=== PATIENT | female | born 1980 | race Caucasian/White ===

== ENCOUNTER → 2016-11-07 | Day surgery (SDC) | payer OTHER ==
[2016-11-02 15:18] VITALS: Ht 165.1 cm; Wt 118.2 kg
[~2016-11-07] VITALS: Ht 165.1 cm; Wt 118.2 kg
[~2016-11-07] MED LIST: ATROPINE SULFATE 0.1 MG/ML 5ML SYR IV PRN; CETI10TA84 PO; DEXAMETHASONE SOD INJ 4 MG/ML VIAL ONE; EpHEDrine SULFATE INJ 50 MG/ML AMP IV PRN; EpHEDrine SULFATE INJ 50 MG/ML AMP ONE; FENTANYL CITRATE INJ 50 MCG/1 ML 2 ML VIAL IV PRN; FENTANYL CITRATE INJ 50 MCG/1 ML 2 ML VIAL ONE; IBUP-1449 PO; LACTATED RINGER'S 1000ML 1,000 ML IV SCH; LIDOCAINE HCL 2% 2 ML VIAL (20MG/ML) ONE; MIDAZOLAM HCL 1 MG/ML 2ML VIAL ONE; NAPR-1168 PO; ONDANSETRON INJ 2 MG/ML 2 ML VIAL IV PRN; ONDANSETRON INJ 2 MG/ML 2 ML VIAL ONE; OXYC-57 PO; PHENYLEPHRINE HCL INJ 10 MG/ML VIAL ONE; PROPOFOL IV EMULSION 10 MG/ML 20 ML VIAL IV ONE; ROCURONIUM BROMIDE 10 MG/ML 5 ML VIAL ONE; SUCCINYLCHOLINE CHLORIDE 20 MG/ML 10 ML VIAL IV ONE; TUMS PO
[2016-11-07 10:12] VITALS: BP 100/70; PULSE 83; TEMP 36.9; O2SAT 96
== END | disposition home or self-care (01) ==
LOC: C.ACU 09:59 → MERGE 11:50
PROVIDERS: ATTEND Otolaryngology
DX: E04.1 Nontoxic single thyroid nodule (principal); Z53.09 Procedure and treatment not carried out because of other contraindication

== ENCOUNTER 2016-11-23 07:42 | Inpatient (IN) | payer OTHER ==
[2016-11-08 12:32] VITALS: BMI 43.0
[~2016-11-23] VITALS: Ht 165.1 cm; Wt 118.0 kg
[2016-11-23] VITALS (9 sets, daily range): BP systolic 103–158; BP diastolic 63–84; PULSE 72–94; TEMP 36.4–37; O2SAT 91–97; Ht 165.1 cm; Wt 118.0 kg
[~2016-11-23 07:42] MED LIST changes: -ATROPINE SULFATE 0.1 MG/ML 5ML SYR IV PRN; -DEXAMETHASONE SOD INJ 4 MG/ML VIAL ONE; -EpHEDrine SULFATE INJ 50 MG/ML AMP IV PRN; -EpHEDrine SULFATE INJ 50 MG/ML AMP ONE; -FENTANYL CITRATE INJ 50 MCG/1 ML 2 ML VIAL IV PRN; -FENTANYL CITRATE INJ 50 MCG/1 ML 2 ML VIAL ONE; -LIDOCAINE HCL 2% 2 ML VIAL (20MG/ML) ONE; -MIDAZOLAM HCL 1 MG/ML 2ML VIAL ONE; -ONDANSETRON INJ 2 MG/ML 2 ML VIAL IV PRN; -ONDANSETRON INJ 2 MG/ML 2 ML VIAL ONE; -OXYC-57 PO; -PHENYLEPHRINE HCL INJ 10 MG/ML VIAL ONE; -PROPOFOL IV EMULSION 10 MG/ML 20 ML VIAL IV ONE; -ROCURONIUM BROMIDE 10 MG/ML 5 ML VIAL ONE; -SUCCINYLCHOLINE CHLORIDE 20 MG/ML 10 ML VIAL IV ONE; -TUMS PO
[2016-11-23] MEDS ORDERED: ONDANSETRON INJ 2 MG/ML 2 ML VIAL ONE (07:58)
[2016-11-23] MEDS ORDERED: DEXAMETHASONE SOD INJ 4 MG/ML VIAL ONE (07:58)
[2016-11-23] MEDS ORDERED: PROPOFOL IV EMULSION 10 MG/ML 20 ML VIAL IV ONE ×2 (07:58→11:03)
[2016-11-23] MEDS ORDERED: LIDOCAINE HCL 2% 2 ML VIAL (20MG/ML) ONE ×2 (07:58→11:27)
[2016-11-23] MEDS ORDERED: MIDAZOLAM HCL 1 MG/ML 2ML VIAL ONE (07:59)
[2016-11-23] MEDS ORDERED: FENTANYL CITRATE INJ 50 MCG/1 ML 2 ML VIAL ONE (08:00)
[2016-11-23] MEDS ORDERED: LIDOCAINE/EPINEPHRINE 1% 20 ML VIAL ONE (08:37)
[2016-11-23] MEDS ORDERED: EpINEphrine INJ 1MG/ML AMP 1 MG/ML AMP ONE (08:38)
[2016-11-23 08:44] LABS: HEMATOCRIT 42.1 % (37-47); MEAN CELL VOLUME 82.7 fL (80-100); MEAN CORPUSCULAR HEMOGLOBIN 27.5 pg (25-34); MEAN CORPUSCULAR HGB CONC 33.3 g/dl (32-36); MEAN PLATELET VOLUME 10.1 fL (7.4-10.4); PLATELET COUNT 221 K/uL (130-400); RED BLOOD COUNT 5.09 M/uL (4.2-5.4); WHITE BLOOD COUNT 7.72 K/uL (4.8-10.8)
[2016-11-23 08:55] LABS: BUN/CREATININE RATIO 16.1 (10-20); CALCIUM 8.7 mg/dl (8.5-10.1); CREATININE 0.89 mg/dl (0.60-1.20); POTASSIUM 3.8 mmol/L (3.5-5.1)
--- NOTE | 2016-11-23 09:03 | History and Physical ---
History & Physical Date Nov 23, 2016. History of Present Illness The patient is a 36 year old female with complaints of left sided thyroid nodule , FNA AUS, suspicious on genetic testing. Additional History Hepatic Disease: No Endocrine Disorder: No Kidney Disease: No Hypertension: No Heart Disease: No Bleeding Tendencies: No Infectious Diseases: No Allergies Coded Allergies: No Known Allergies (Unverified , 11/23/16) Home Medications Scheduled PRN Cetirizine (Zyrtec), 10 MG PO prn PRN for allergies Ibuprofen Tab (Motrin), 400 MG PO UD PRN for Pain Naproxen Ds (Naprosyn Ds), 550 MG PO UD PRN for menstrual cramps/bleeding Physical Examination Skin: warm/dry, no rash Eyes: normal inspection, EOMI, sclerae normal ENT: normal ENT inspection, pharynx normal Head: normocephalic, atraumatic Neck: supple, no adenopathy, trachea midline Respiratory/Chest: lungs clear, normal breath sounds, no respiratory distress Cardiovascular: regular rate, rhythm, no edema, no murmur Diagnosis Left thyroid nodule Plan of Treatment proceed with left hemithyroidectomy scds
[2016-11-23] MEDS ORDERED: PROMETHAZINE HCL INJ 6.25 MG in SODIUM CHLORIDE 0.9% 50ML 50 ML IV PRN (09:15)
[2016-11-23] MEDS ORDERED: LABETALOL HCL IV 5 MG/ML 20ML IV PRN (09:15)
[2016-11-23] MEDS ORDERED: ATROPINE SULFATE 0.1 MG/ML 5ML SYR IV PRN (09:15)
[2016-11-23] MEDS ORDERED: ONDANSETRON INJ 2 MG/ML 2 ML VIAL IV PRN ×2 (09:15→09:30)
[2016-11-23] MEDS ORDERED: TUMS PO (09:23)
[2016-11-23] MEDS ORDERED: OXYC-57 PO (09:23)
--- NOTE | 2016-11-23 09:26 | Discharge Instructions ---
Discharge Instructions Date of Service Nov 23, 2016. Admission Reason for Admission: Thyroid Nodule Discharge Discharge Diagnosis / Problem: thyroid nodule Discharge Goals Goal(s): Diagnostic testing Activity Recommendations Activity Limitations: as noted below Lifting Limitations: until after follow-up appointment Exercise/Sports Limitations: until after follow-up appointment May Resume Sexual Activity: after follow-up appointment Shower/Bathe: keep incision dry Driving or Machine Use: no driving until after first follow up . Instructions / Follow-Up Instructions / Follow-Up No strenuous activity for 2 weeks Keep incision dry. To shower, place a washcloth over the incision and wrap neck in saran wrap Call for any numbness or tingling around lips or fingertips that does not resolve after 15 minutes of rest call for any spreading redness or swelling of the incision Do not place any ointment or any cream on the steri strip. Keep this dry. Current Hospital Diet Patient's current hospital diet: Discharge Diet Recommended Diet: Regular Diet Fluid Restriction: None Pending Studies Studies pending at discharge: no Medical Emergencies . Who to Call and When: Medical Emergencies: If at any time you feel your situation is an emergency, please call 911 immediately. . Non-Emergent Contact Non-Emergency issues call your: Specialist Contact Number: [phone] . . "Provider Documentation" section prepared by Jimmy Barrett. . VTE Core Measure Inpt VTE Proph given/why not?: Treatment not indicated [place] Drug Monitoring Program Search Results: patient reviewed within database, no issues identified
[2016-11-23] MEDS ORDERED: CETIRIZINE HCL 10 MG TAB PO PRN (09:30)
[2016-11-23] MEDS ORDERED: MoRPHine SULFATE 2 MG/ML CARP IV PRN (09:30)
[2016-11-23] MEDS ORDERED: SUCCINYLCHOLINE CHLORIDE 20 MG/ML 10 ML VIAL IV ONE (11:03)
[2016-11-23] MEDS ORDERED: ARTIFICIAL TEARS OP OINT 3.5 GM TUBE ONE (11:28)
--- NOTE | 2016-11-23 11:30 | [facility] Post Operative Brief Note ---
Immediate Operative Summary Operative Date Nov 23, 2016. Pre-Operative Diagnosis Left thyroid nodule Post-Operative Diagnosis Left thyroid nodule Procedure(s) Performed Left Hemithyroidectomy Surgeon Dr. Jimmy Barrett Hose Tester Surgeon(s) Jer Padilla PA-C Estimated Blood Loss 10 ML Findings left thyroid nodule Specimens a. Left Thyroid Lobe, portion of ithmus; stitch superior pole Drains none Anesthesia GETA Complication(s) None Disposition Recovery Room / PACU
--- NOTE | 2016-11-23 11:43 | [facility] Operative Report ---
Operative Report Date of Service Nov 23, 2016. Operative Report Date of Operation: 11/23/16 Service: Otolaryngology, Head and Neck Surgery Surgeon: Jimmy Barrett DO Assistants: Teagan Padilla PA-C Procedure: Left hemithyroidectomy Anesthesia: GETA Complications: None Drains: None Estimated Blood Loss: 10mL IV fluids: 1200mL Urine output: 0mL Specimen: Left thyroid lobe and portion of isthmus, stitch in superior pole Findings: See body of operative report Indications and history: 36 yo female with left dominant thyroid nodule. Cytology consistent with AUS on FNA, genetic testing suspicious. I discussed the options with her including observation vs consideration of surgical biopsy. she elected surgical biopsy. I discussed the risks including bleeding, infection, excessive scarring, recurrent nerve injury, hypoparathyroidism. She expressed her understanding and signed informed consent. Description of operation: Patient brought to the operating room, identified and procedure verified. SCDs in place at time of anesthesia induction. Patient was intubated with the NIM tube and a shoulder roll was placed. NIM tube placement confirmed with the glide scope. She was then prepped and draped in the usual sterile fashion for thyroid surgery. Low Richard incision was delineated with marking pen and injected with 1% lidocaine with 1:100,000 epinephrine. Incision was then made with a 15 blade, down through skin and subcutaneous tissue. It was then carried through platysma. Superior and inferior subplatysmal flaps were then raised in the usual fashion. The midline raphe was identified, divided and attention was directed to the strap muscles on the left side. These were skeletonized and retracted laterally. Once the gland came into plain view the superior pole was taken down in the usual fashion with blunt dissection and harmonic mili. Hemostasis was assured with surgiclips. Once the superior pole had been taken down, attention was directed to the inferior aspect of the gland. The viscerovetebral angle was exposed after the gland was retracted medially. Dissection proceeding inferior to superior taking down the fascial attachments. During this portion of the dissection the recurrent laryngeal nerve was identified. It was stimulated with the prass probe to confirm, brisk response obtained. The nerve was then dissected out to its entrance into the cricothyroid joint. During this portion of the dissection, the left superior parathyroid was identified and preserved. The left inferior was not identified but was felt to be preserved due to capsular dissection. The remaining fascial attachments of the gland to the trachea were taken down with blunt dissection and harmonic mili. The gland was removed, stitch placed at superior pole. The wound was irrigated liberally. Hemostasis assured, valsalva maneuver also performed. Ther left recurrent nerve was stimulated as proximal as possible and a brisk response was obtained. Ayesha hemostatic powder was applied and the wound was closed in the usual fashion. Deep layer closed with 3-0 vicryl, platysmal layer closed with 3 -0 vicryl, subdermal layer closed with 4-0 vicryl and the subcuticular layer closed with 4-0 barbed suture. Skin closed with dermabond. Steri strip applied. Patient was then returned the anesthesia, awakened and taken to PACU in stable condition. I attest to the content of the Intraoperative Record and any orders documented therein. Any exceptions are noted below. Copy To Jimmy Goins M.D.
[2016-11-23] MEDS: HYDROmorphone INJ 2 MG/ML SYR/VIAL IV PRN ×2 (11:56→12:03)
--- NOTE | 2016-11-23 12:58 | Anesthesiology Progress Note ---
Anesthesia Post Op Note Date & Time Nov 23, 2016 at 12:58 Vital Signs Pain Intensity: 0.0 Vital Signs Past 12 Hours Date Time Temp Pulse Resp B/P (MAP) Pulse Ox O2 Delivery O2 Flow Rate FiO2 11/23/16 12:48 96 Nasal Cannula 2.0 11/23/16 12:35 37.0 92 15 158/84 11/23/16 12:35 96 Nasal Cannula 2.0 11/23/16 12:20 36.6 88 16 148/80 98 Mask 3 11/23/16 12:10 92 16 158/77 98 Mask 3 11/23/16 12:00 94 16 143/83 99 Mask 3 11/23/16 11:50 99 16 147/81 99 Mask 10 11/23/16 11:40 36.8 98 16 154/80 97 Mask 10 11/23/16 08:07 36.8 85 16 132/82 (99) 95 Room Air Notes Mental Status: alert / awake / arousable, participated in evaluation Pt Amnestic to Procedure: Yes Nausea / Vomiting: adequately controlled Pain: adequately controlled Airway Patency, RR, SpO2: stable & adequate BP & HR: stable & adequate Hydration State: stable & adequate Anesthetic Complications: no major complications apparent
[2016-11-23] MEDS: SODIUM CHLORIDE 0.9% 1000ML 1,000 ML IV SCH (13:04)
[2016-11-23] MEDS: OXYCODONE/ACETAMINOPHEN 5-325 TAB PO PRN ×3 (15:37→23:57)
[2016-11-24 04:00] VITALS: BP 101/65; PULSE 99; TEMP 37.3; O2SAT 94
[2016-11-24] MEDS: OXYCODONE/ACETAMINOPHEN 5-325 TAB PO PRN ×2 (04:05→08:11)
[2016-11-24] MEDS: SODIUM CHLORIDE 0.9% 1000ML 1,000 ML IV SCH (05:18)
--- NOTE | 2016-11-24 07:42 | Discharge Summary ---
Discharge Summary Date of Service Nov 24, 2016. Discharge Summary Admission Date: Nov 23, 2016 at 09:21 Discharge Disposition: Home Primary Diagnosis: Thyroid Nodule Procedures: Left hemithyroidectomy Discharge Instructions Last Recorded Wt (Kilograms): 118.000 Activity Recommendations: driving or machine use limit (no driving for one week ), shower/bathe limit (keep the incision clean and dry by placing a towel over the incision site and wrapping with plastic wrap. ), limitations (no strenuous activity for until post-operative appointment. ) Allergies: Coded Allergies: No Known Allergies (Unverified , 11/23/16) Special Care: Call your doctor if: * Temperature above 101 degrees * Pain not relieved by pain medicine ordered * There is increased drainage or redness from any incision * You have any unanswered questions or concerns. Avoid all tobacco products. If you need help to stop smoking, call [facility] FREE QUITLINE at . This is a free call. Hospital Course Patient presented on 11/23/16 for left hemithyroidectomy for thyroid nodule. She tolerated the procedure well and was able to phonate easily with minimal hoarseness immediately after extubation. The patient reported that she had minimal pain last night and has been taking her pain medication as directed. She denied dysphagia, difficulty speaking, numbness, and tingling. On exam today her incision is clean and dry with steri strip intact. There is minimal edema inferior to her incision site which is soft. There is no redness noted. She was educated on post-operative incision care and will take her Tums and pain medication as directed. She will follow up with Dr. Jimmy Barrett on 11/29/16. Total time spent on discharge = This includes examination of the patient, discharge planning, medication reconciliation, and communication with other providers.
[2016-11-24 08:02] VITALS: BP 106/72; PULSE 84; TEMP 37; O2SAT 95
[2016-11-24 08:05] VITALS: O2SAT 95
[2016-11-24 08:15] VITALS: BP 106/72; PULSE 84; TEMP 37; O2SAT 95
== END 2016-11-24 09:15 | disposition home or self-care (01) | DRG 626 ==
LOC: C.ACU 07:42 → C.MSN 09:21 → ENRESERV 12:07
PROVIDERS: ADMIT Otolaryngology; ATTEND Otolaryngology
PROC: 0GTG0ZZ Resection of Left Thyroid Gland Lobe, Open Approach (ICD-10-PCS; principal; 2016-11-23 09:00)
DX: E04.1 Nontoxic single thyroid nodule (principal); Z68.41 Body mass index [BMI] 40.0-44.9, adult; E66.01 Morbid (severe) obesity due to excess calories